=== PATIENT | female | born 1950 | race Asian ===

== ENCOUNTER → 2016-12-10 | Outpatient (CLI) | payer OTHER, BC ==
[~2016-12-10] MED LIST: ASPCH81X PO; ATOR10TA82 PO; CALC-354 PO; CHOL100027 PO; CIPR-255 PO; LISI-725 PO; OMEGCAP2 PO
== END | disposition home or self-care (01) ==
LOC: C.PATHSPEC 11:10
PROVIDERS: ATTEND Obstetrics & Gynecology
DX: D18.09 Hemangioma of other sites (principal)